=== PATIENT | female | born 1960 | race Caucasian/White ===

== ENCOUNTER → 2016-06-05 | Outpatient (CLI) | payer BC | LOC: LAB 07:18 | DX: Z00.00 Encounter for general adult medical examination without abnormal findings (principal); E11.65 Type 2 diabetes mellitus with hyperglycemia; E03.4 Atrophy of thyroid (acquired) ==

== ENCOUNTER → 2016-06-08 | Outpatient (CLI) | payer BC | LOC: LAB 18:09 | DX: Z00.00 Encounter for general adult medical examination without abnormal findings (principal); E11.65 Type 2 diabetes mellitus with hyperglycemia; Z12.11 Encounter for screening for malignant neoplasm of colon ==

== ENCOUNTER → 2016-07-24 | Outpatient (CLI) | payer BC | LOC: LAB 11:51 ==

== ENCOUNTER → 2016-09-29 | Outpatient (CLI) | payer BC | LOC: LAB 08:43 | DX: E78.2 Mixed hyperlipidemia (principal); E11.65 Type 2 diabetes mellitus with hyperglycemia ==

== ENCOUNTER → 2018-05-18 | Outpatient (CLI) | payer BC ==
[2018-05-18 12:08] LABS: EOS # 0.1 (0.04-0.40); EOS % 1.9 % (1.0-5.0); HEMATOCRIT 43.6 % (37.0-47.0); HEMOGLOBIN 14.3 g/dL (12.5-16.0); LYMPH# 2.3 (1.50-4.00); MEAN CELL VOLUME 89 fl (78-100); MEAN CORPUSCULAR HEMOGLOBIN 29 pg (27-31); MEAN CORPUSCULAR HGB CONC 33 g/dL (33-37); MONO # 0.4 (0.20-0.80); NEU # 4.7 (1.40-6.50); PLATELET COUNT 356 K/mm3 (130-400); RED BLOOD COUNT 4.88 M/mm3 (4.10-5.30); RED CELL DISTRIBUTION WIDTH 14.3 % (11.5-14.5); WHITE BLOOD COUNT 7.6 K/mm3 (4.8-10.8)
[2018-05-18 12:35] LABS: ALBUMIN 4.5 g/dL (3.5-5.0); CALCIUM 10.3 mg/dL (8.4-10.2); POTASSIUM 4.6 mmol/L (3.6-5.0); TOTAL BILIRUBIN 1.1 mg/dL (0.2-1.3); TOTAL PROTEIN 7.6 g/dL (6.3-8.2)
== END ==
LOC: LAB 11:47
PROVIDERS: Physician Assistant
DX: I10 Essential (primary) hypertension (principal); E11.9 Type 2 diabetes mellitus without complications; E03.9 Hypothyroidism, unspecified

== ENCOUNTER → 2018-08-27 | Outpatient (CLI) | payer BC | LOC: LAB 09:18 | DX: E11.9 Type 2 diabetes mellitus without complications (principal) ==

== ENCOUNTER → 2018-10-04 | Outpatient (CLI) | payer BC ==
[~2018-10-04] VITALS: Ht 162.6 cm; Wt 86.4 kg
[~2018-10-04] MED LIST: ASPIRIN E.C. 8181 MG PO; CALCITRATE200 MG PO; DAILY VALUE1 EACH PO; HYDROCHLOROTH12.5 M2 PO; HYDROXYZINE HCL25 M1 PO; LATANOPROST 2.2.5 ML OU; LEADER MELATONIN5 MG PO; LEVOTHYROXIN0.075 MG PO; LISINOPRIL20 MG PO; MASON NATURAL500 MG PO; METFORMIN HYD1000 MG PO; NIACIN500 M6 PO; NORVASC 5MG5 MG/TAB PO; OMEGA 3 1,0001 EACH PO; ZOLOFT 50MG50 MG PO
[2018-10-04 08:18] LABS: BASO # 0.1 (0.02-0.10); EOS # 0.2 (0.04-0.40); EOS % 2.9 % (1.0-5.0); HEMATOCRIT 44.7 % (37.0-47.0); HEMOGLOBIN 14.6 g/dL (12.5-16.0); MEAN CELL VOLUME 93 fl (78-100); MEAN CORPUSCULAR HEMOGLOBIN 30 pg (27-31); MEAN CORPUSCULAR HGB CONC 33 g/dL (33-37); MEAN PLATELET VOLUME 8.7 fl (7.4-10.4); MONO # 0.6 (0.20-0.80); PLATELET COUNT 379 K/mm3 (130-400); RED BLOOD COUNT 4.81 M/mm3 (4.10-5.30); RED CELL DISTRIBUTION WIDTH 12.7 % (11.5-14.5); WHITE BLOOD COUNT 6.9 K/mm3 (4.8-10.8)
[2018-10-04 08:55] LABS: ALBUMIN 4.3 g/dL (3.5-5.0); CALCIUM 10.4 mg/dL (8.3-10.5); POTASSIUM 4.7 mmol/L (3.5-5.1); TOTAL BILIRUBIN 0.8 mg/dL (0.2-1.2); TOTAL PROTEIN 7.8 g/dL (6.4-8.3)
[2018-10-04 09:13] LABS: URINE APPEARANCE CLEAR; URINE BILIRUBIN NEGATIVE (NEGATIVE); URINE COLOR YELLOW; URINE GLUCOSE NEGATIVE (NEGATIVE); URINE KETONE NEGATIVE (NEGATIVE); URINE NITRATE NEGATIVE (NEGATIVE); URINE PROTEIN(semi-quant) TRACE mg/dL (NEGATIVE); URINE UROBILINOGEN NORMAL (NORMAL)
[2018-10-04 09:14] LABS: URINE BLOOD TRACE (NEGATIVE); URINE LEUKOCYTE ESTERASE 1+ (NEGATIVE)
== END ==
LOC: AMSURD 07:57
PROVIDERS: Internal Medicine
DX: Z01.818 Encounter for other preprocedural examination (principal); N81.6 Rectocele

== ENCOUNTER → 2019-11-21 | Outpatient (CLI) | payer BC ==
[2019-11-21 11:10] LABS: BASO # 0.1 (0.02-0.10); EOS # 0.3 (0.04-0.40); EOS % 4.4 % (1.0-5.0); HEMATOCRIT 43.4 % (37.0-47.0); HEMOGLOBIN 14.7 g/dL (12.5-16.0); LYMPH# 1.7 (1.50-4.00); MEAN CELL VOLUME 92 fl (78-100); MEAN CORPUSCULAR HEMOGLOBIN 31 pg (27-31); MEAN CORPUSCULAR HGB CONC 34 g/dL (33-37); MEAN PLATELET VOLUME 9.1 fl (7.4-10.4); MONO # 0.4 (0.20-0.80); NEU # 3.2 (1.40-6.50); PLATELET COUNT 340 K/mm3 (130-400); RED BLOOD COUNT 4.73 M/mm3 (4.10-5.30); RED CELL DISTRIBUTION WIDTH 12.9 % (11.5-14.5); WHITE BLOOD COUNT 5.7 K/mm3 (4.8-10.8)
[2019-11-21 11:20] LABS: POTASSIUM 4.2 mmol/L (3.5-5.1)
[2019-11-21 11:21] LABS: ALBUMIN 4.5 g/dL (3.4-4.8)
[2019-11-21 11:22] LABS: CALCIUM 10.1 mg/dL (8.3-10.5)
[2019-11-21 11:23] LABS: TOTAL PROTEIN 7.9 g/dL (6.2-8.1)
== END ==
LOC: LAB 10:51
PROVIDERS: Internal Medicine
DX: Z00.00 Encounter for general adult medical examination without abnormal findings (principal); E11.9 Type 2 diabetes mellitus without complications

== ENCOUNTER → 2020-11-22 | Outpatient (CLI) | payer BC ==
[2020-11-22 10:09] LABS: BASO # 0.09 (0.02-0.10); EOS # 0.28 (0.04-0.40); EOS % 4.5 % (1.0-5.0); HEMATOCRIT 39.9 % (37.0-47.0); HEMOGLOBIN 12.3 g/dL (12.5-16.0); LYMPH# 1.89 (1.50-4.00); MEAN CELL VOLUME 80 fl (78-100); MEAN CORPUSCULAR HEMOGLOBIN 25 pg (27-31); MEAN CORPUSCULAR HGB CONC 31 g/dL (33-37); MEAN PLATELET VOLUME 8.9 fl (7.4-10.4); MONO # 0.49 (0.20-0.80); NEU # 3.45 (1.40-6.50); PLATELET COUNT 402 K/mm3 (130-400); RED BLOOD COUNT 4.98 M/mm3 (4.10-5.30); WHITE BLOOD COUNT 6.2 K/mm3 (4.8-10.8)
[2020-11-22 10:15] LABS: ALBUMIN 4.3 g/dL (3.4-4.8); POTASSIUM 4.6 mmol/L (3.5-5.1)
[2020-11-22 10:16] LABS: CALCIUM 10.3 mg/dL (8.3-10.5)
[2020-11-22 10:17] LABS: TOTAL PROTEIN 7.6 g/dL (6.2-8.1)
[2020-11-22 10:19] LABS: TOTAL BILIRUBIN 0.9 mg/dL (0.2-1.2)
[2020-11-22 10:24] LABS: MAGNESIUM 2.02 mg/dL (1.60-2.60)
[2020-11-22 10:46] LABS: URINE APPEARANCE CLEAR; URINE BILIRUBIN NEGATIVE (NEGATIVE); URINE BLOOD NEGATIVE (NEGATIVE); URINE COLOR YELLOW; URINE GLUCOSE NEGATIVE (NEGATIVE); URINE KETONE NEGATIVE (NEGATIVE); URINE LEUKOCYTE ESTERASE 1+ (NEGATIVE); URINE NITRATE NEGATIVE (NEGATIVE); URINE PROTEIN(semi-quant) NEGATIVE (NEGATIVE); URINE UROBILINOGEN NORMAL (NORMAL)
[2020-11-22 12:04] LABS: ERYTHROCYTE SEDIMENTATION RATE 12 mm/hr (0-30)
== END ==
LOC: LAB 09:17
PROVIDERS: Internal Medicine
DX: Z00.00 Encounter for general adult medical examination without abnormal findings (principal); Z12.11 Encounter for screening for malignant neoplasm of colon; M79.671 Pain in right foot

== ENCOUNTER → 2021-01-03 | Outpatient (CLI) | payer BC | LOC: LAB 09:36 | DX: E03.4 Atrophy of thyroid (acquired) (principal); E78.2 Mixed hyperlipidemia ==

== ENCOUNTER → 2021-03-08 | Outpatient (CLI) | payer BC | LOC: LAB 09:16 | DX: E03.4 Atrophy of thyroid (acquired) (principal); E11.9 Type 2 diabetes mellitus without complications ==

== ENCOUNTER → 2022-02-27 | Outpatient (CLI) | payer BC ==
[2022-02-27 12:21] LABS: BASO # 0.04 K/mm3 (0.02-0.10); EOS # 0.13 K/mm3 (0.04-0.40); EOS % 1.7 % (1.0-5.0); HEMOGLOBIN 12.7 g/dL (12.5-16.0); LYMPH# 1.73 K/mm3 (1.50-4.00); MEAN CELL VOLUME 88 fl (78-100); MEAN CORPUSCULAR HEMOGLOBIN 28 pg (27-31); MEAN CORPUSCULAR HGB CONC 32 g/dL (33-37); MEAN PLATELET VOLUME 8.9 fl (7.4-10.4); MONO # 0.53 K/mm3 (0.20-0.80); NEU # 5.14 K/mm3 (1.40-6.50); PLATELET COUNT 297 K/mm3 (130-400); RED BLOOD COUNT 4.54 M/mm3 (4.10-5.30); RED CELL DISTRIBUTION WIDTH 15.8 % (11.5-14.5); WHITE BLOOD COUNT 7.6 K/mm3 (4.8-10.8)
[2022-02-27 12:35] LABS: ALBUMIN 4.4 g/dL (3.4-4.8); POTASSIUM 4.5 mmol/L (3.5-5.1)
[2022-02-27 12:36] LABS: CALCIUM 10.6 mg/dL (8.3-10.5)
[2022-02-27 12:37] LABS: TOTAL PROTEIN 7.7 g/dL (6.2-8.1)
[2022-02-27 12:39] LABS: TOTAL BILIRUBIN 1.1 mg/dL (0.2-1.2)
[2022-02-27 12:43] LABS: URINE APPEARANCE CLEAR; URINE BILIRUBIN NEGATIVE (NEGATIVE); URINE BLOOD TRACE (NEGATIVE); URINE COLOR YELLOW; URINE GLUCOSE NEGATIVE (NEGATIVE); URINE KETONE NEGATIVE (NEGATIVE); URINE LEUKOCYTE ESTERASE TRACE (NEGATIVE); URINE NITRATE NEGATIVE (NEGATIVE); URINE PROTEIN(semi-quant) NEGATIVE (NEGATIVE); URINE UROBILINOGEN NORMAL (NORMAL)
[2022-02-27 13:40] LABS: ERYTHROCYTE SEDIMENTATION RATE 20 mm/hr (0-30)
== END ==
LOC: LAB 12:03
PROVIDERS: Internal Medicine
DX: Z00.00 Encounter for general adult medical examination without abnormal findings (principal); Z12.11 Encounter for screening for malignant neoplasm of colon; U07.1 COVID-19; E03.4 Atrophy of thyroid (acquired); I10 Essential (primary) hypertension; E78.2 Mixed hyperlipidemia; E11.9 Type 2 diabetes mellitus without complications; F41.8 Other specified anxiety disorders

== ENCOUNTER → 2023-08-27 | Outpatient (CLI) | payer MEDICARE, BC ==
[2023-08-24 10:35] LABS: BASO # 0.03 K/mm3 (0.02-0.10); EOS % 2.7 % (1.0-5.0); HEMATOCRIT 38.4 % (37.0-47.0); HEMOGLOBIN 11.9 g/dL (12.5-16.0); LYMPH# 1.86 K/mm3 (1.50-4.00); MEAN CELL VOLUME 83 fl (78-100); MEAN CORPUSCULAR HEMOGLOBIN 26 pg (27-31); MEAN CORPUSCULAR HGB CONC 31 g/dL (33-37); MEAN PLATELET VOLUME 8.5 fl (7.4-10.4); PLATELET COUNT 470 K/mm3 (130-400); RED BLOOD COUNT 4.64 M/mm3 (4.10-5.30); RED CELL DISTRIBUTION WIDTH 17.1 % (11.5-14.5); WHITE BLOOD COUNT 7.3 K/mm3 (4.8-10.8)
[2023-08-24 10:39] LABS: ALBUMIN 4.4 g/dL (3.4-4.8)
[2023-08-24 10:41] LABS: TOTAL PROTEIN 7.9 g/dL (6.2-8.1)
[2023-08-24 10:43] LABS: PH-URINE 5.5 (5.0 - 8.0); TOTAL BILIRUBIN 0.8 mg/dL (0.2-1.2); URINE APPEARANCE CLEAR (CLEAR); URINE BILIRUBIN NEGATIVE (NEGATIVE); URINE BLOOD NEGATIVE (NEGATIVE); URINE COLOR YELLOW (YELLOW); URINE GLUCOSE NEGATIVE (NEGATIVE); URINE KETONE NEGATIVE (NEGATIVE); URINE LEUKOCYTE ESTERASE NEGATIVE (NEGATIVE); URINE NITRATE NEGATIVE (NEGATIVE); URINE PROTEIN(semi-quant) NEGATIVE (NEGATIVE)
[2023-08-24 10:44] LABS: URINE MUCUS PRESENT (NOT PRESENT)
[2023-08-24 10:48] LABS: MAGNESIUM 1.75 mg/dL (1.60-2.60)
== END ==
LOC: RAD 14:22 → MAMMO 14:30
PROVIDERS: Internal Medicine
DX: Z13.820 Encounter for screening for osteoporosis (principal); M85.80 Other specified disorders of bone density and structure, unspecified site

== ENCOUNTER → 2023-12-04 | Outpatient (CLI) | payer MEDICARE, BC ==
[~2023-12-04] MED LIST changes: +ATORVASTATIN CA20 MG PO; +LEVOTHYROXIN0.088 MG PO; +MORGIDOX 1X100100 MG PO; +PIOGLITAZONE HC30 MG PO; +PROAIR HFA0.09 MG/AC IH; +TIMOPTIC OCUDO OU
[2023-12-04 08:21] LABS: BASO # 0.04 K/mm3 (0.02-0.10); EOS # 0.13 K/mm3 (0.04-0.40); EOS % 2.8 % (1.0-5.0); HEMATOCRIT 36.6 % (37.0-47.0); HEMOGLOBIN 11.5 g/dL (12.5-16.0); LYMPH# 2.08 K/mm3 (1.50-4.00); MEAN CELL VOLUME 85 fl (78-100); MEAN CORPUSCULAR HEMOGLOBIN 27 pg (27-31); MEAN CORPUSCULAR HGB CONC 31 g/dL (33-37); MEAN PLATELET VOLUME 8.7 fl (7.4-10.4); MONO # 0.39 K/mm3 (0.20-0.80); NEU # 2.07 K/mm3 (1.40-6.50); PLATELET COUNT 372 K/mm3 (130-400); RED BLOOD COUNT 4.33 M/mm3 (4.10-5.30); RED CELL DISTRIBUTION WIDTH 16.3 % (11.5-14.5); WHITE BLOOD COUNT 4.7 K/mm3 (4.8-10.8)
[2023-12-04 08:28] LABS: ALBUMIN 3.9 g/dL (3.4-4.8); SODIUM 139 mmol/L (136-145)
[2023-12-04 08:29] LABS: CALCIUM 10.3 mg/dL (8.3-10.5)
[2023-12-04 08:30] LABS: GLUCOSE 119 mg/dL (65-105)
[2023-12-04 08:31] LABS: TOTAL PROTEIN 6.6 g/dL (6.2-8.1)
[2023-12-04 08:32] LABS: CARBON DIOXIDE 22 mmol/L (23-31); TOTAL BILIRUBIN 0.8 mg/dL (0.2-1.2)
[2023-12-04 08:36] LABS: AST-SGOT 15 U/L (5-34)
[2023-12-04 08:37] LABS: ALT/SGPT 9 U/L (0-55)
[2023-12-05 00:28] LABS: PTH,INTACT 53.8 pg/mL (6.6-88.9)
[2023-12-05 00:33] LABS: CALCIUM, IONIZED, SERUM 1.36 mmol/L (1.19-1.41)
== END ==
LOC: LAB 08:01
PROVIDERS: Internal Medicine
DX: J18.9 Pneumonia, unspecified organism (principal); E83.52 Hypercalcemia

== ENCOUNTER → 2024-01-08 | Outpatient (CLI) | payer MEDICARE, BC | LOC: RAD 12:47 | DX: R91.8 Other nonspecific abnormal finding of lung field (principal) ==

== ENCOUNTER → 2024-02-25 | Outpatient (CLI) | payer MEDICARE, BC ==
[2024-02-25 10:44] LABS: ALBUMIN 4.2 g/dL (3.4-4.8)
[2024-02-25 10:46] LABS: TOTAL PROTEIN 7.3 g/dL (6.2-8.1)
== END ==
LOC: LAB 10:09
PROVIDERS: Internal Medicine
DX: I10 Essential (primary) hypertension (principal); E78.2 Mixed hyperlipidemia; E11.9 Type 2 diabetes mellitus without complications; K90.9 Intestinal malabsorption, unspecified; M79.671 Pain in right foot

== ENCOUNTER → 2024-03-28 | Outpatient (CLI) | payer MEDICARE, BC ==
[2024-03-28 09:00] LABS: CALCIUM 10.5 mg/dL (8.3-10.5)
== END ==
LOC: LAB 08:36
PROVIDERS: Internal Medicine
DX: E83.52 Hypercalcemia (principal)

== ENCOUNTER → 2024-03-31 | Outpatient (CLI) | payer MEDICARE, BC | LOC: LAB 13:34 | DX: E83.52 Hypercalcemia (principal) ==

== ENCOUNTER → 2024-07-15 | Outpatient (CLI) | payer MEDICARE, BC | LOC: MAMMO 07:00 | DX: N63.10 Unspecified lump in the right breast, unspecified quadrant (principal) ==